=== PATIENT | male | born 1975 | race Caucasian/White ===

== ENCOUNTER 2017-11-11 12:07 | Inpatient (IN) | payer OTHER ==
[2017-11-11] MEDS ORDERED: NA CHLORIDE 0.9% 500 ML ONE (12:44)
[2017-11-11] MEDS ORDERED: ACETAMINOPHEN 500 MG TAB ONE (12:44)
--- NOTE | 2017-11-11 13:46 | RAD REPORT ---
EXAM DESCRIPTION: CT - Head Brain Wo Cont - 11/11/2017 1:27 pm CLINICAL HISTORY: dizziness Syncope COMPARISON: No comparisons TECHNIQUE: All CT scans are performed using dose optimization technique as appropriate and may inclu de automated exposure control or mA/KV adjustment according to patient size. FINDINGS: No intracranial hemorrhage, hydrocephalus or extra-axial fluid collection.No areas of brai n edema or evidence of midline shift. The paranasal sinuses and mastoids are clear. The calvarium is intact. IMPRESSION: No acute intracranial abnormality.
[2017-11-11] MEDS ORDERED: NA CHLORIDE 0.9% 1,000 ML ONE (13:59)
--- NOTE | 2017-11-11 14:03 | RAD REPORT ---
EXAM DESCRIPTION: RAD - Chest Single View - 11/11/2017 1:29 pm CLINICAL HISTORY: Pneumonia Chest pain. COMPARISON: No comparisons FINDINGS: Portable technique limits examination quality. The lungs are grossly clear. The heart is normal in size. No displaced fractures. IMPRESSION: No acute intrathoracic process suspected.
[2017-11-11 14:26] LABS: Absolute Lymphocytes (CBC) 0.2 K/uL (0.7-4.9); Absolute Monocytes 0.4 K/uL (0.1-1.3); Absolute Neutrophil 7.3 K/uL (1.8-8.0); Basophils % 0.3 % (0-1.3); Eosinophils % 4.2 % (0-4.4); Hematocrit 44.7 % (39.6-49.0); Lymphocytes % 2.8 % (15.3-44.8); MCH 27.4 pg (27.0-35.0); MCV 82.2 fL (80-100); MPV 9.5 fL (7.6-11.3); Monocytes % 4.8 % (3.3-12.3); RBC Red Blood Cell Count 5.44 M/uL (4.33-5.43)
[2017-11-11 14:35] LABS: Protime INR 1.27
[2017-11-11] MEDS ORDERED: PEN G BENZ LA 1.2MU/2ML SYRINGE IM ONE (14:46)
--- NOTE | 2017-11-11 16:14 | EDPHYS ---
Physician Documentation [facility] Name: Jesus Batres Age: 42 yrs Sex: Male : 1975 Arrival Date: 11/11/2017 Time: 12:19 Bed 8 Private MD: ED Physician Kayden Stearns HPI: 11/11 12:26 This 42 yrs old Male presents to ER via Unassigned with complaints of rn headache, blurred vision. 12:26 The patient complains of pain to the back of head. The patient describes the headache rn as aching. Onset: The symptoms/episode began/occurred this morning. Associated signs and symptoms: Pertinent positives: paresthesias, weakness, Pertinent negatives: altered mental status, vomiting, vertigo. Severity of symptoms: At its worst the pain was moderate, in the emergency department the pain has improved. The patient has not experienced similar symptoms in the past. Reports headache, blurred vision from left eye, and tingling of left hand since 0700, headache still present but vision near normal now and tingling resolved. NO chest pain. 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 . Historical: - Allergies: 12:30 No Known Allergies; jl7 - PMHx: 12:30 Hypertension; jl7 - Immunization history:: Adult Immunizations not up to date. - Social history:: Smoking status: Patient/guardian denies using tobacco. - Family history:: not pertinent. - Ebola Screening: : No symptoms or risks identified at this time. - Hospitalizations: : No recent hospitalization is reported. 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 Head/Face: Normocephalic, atraumatic. Eyes: Pupils equal round and reactive to light, extra-ocular motions intact. Lids and lashes normal. Conjunctiva and sclera are non-icteric and not injected. Cornea within normal limits. Periorbital areas with no swelling, redness, or edema. ENT: dry MM, mild pharyngeal erythema, no exudate or stridor. Neck: Trachea midline, no thyromegaly or masses palpated, and no cervical lymphadenopathy. Supple, full range of motion without nuchal rigidity, or vertebral point tenderness. No Meningismus. Cardiovascular: Regular rate and rhythm with a normal S1 and S2. No gallops, murmurs, or rubs. Normal PMI, no JVD. No pulse deficits. Respiratory: Lungs have equal breath sounds bilaterally, clear to auscultation and percussion. No rales, rhonchi or wheezes noted. No increased work of breathing, no retractions or nasal flaring. Abdomen/GI: Soft, non-tender, with normal bowel sounds. No distension or tympany. No guarding or rebound. No evidence of tenderness throughout. Skin: Warm, + non-blanching erythematous papular rash to bilateral lower ext, no fluctuance MS/ Extremity: Pulses equal, no cyanosis. Neurovascular intact. Full, normal range of motion. Equal circumference. Neuro: Awake and alert, GCS 15, oriented to person, place, time, and situation. Cranial nerves II-XII grossly intact. Motor strength 5/5 in all extremities. Sensory grossly intact. Cerebellar exam normal. Normal gait. Vital Signs: 12:30 BP 116 / 62; Pulse 110; Resp 18 S; Temp 102.3(O); Pulse Ox 96% on R/A; Weight 122.47 kg jl7 (R); Height 5 ft. 9 in. (175.26 cm) (R); Pain 7/10; 13:45 BP 89 / 49; Pulse 107; Resp 16 S; Temp 99.6(O); Pulse Ox 98% on R/A; jl7 14:13 BP 82 / 58; Pulse 101; Resp 16; Pulse Ox 98% on R/A; dh3 15:17 BP 108 / 57; Pulse 96; Resp 18 S; Pulse Ox 98% on R/A; 7 16:04 BP 97 / 64; Pulse 95; Resp 15 S; Pulse Ox 99% on R/A; jl7 12:30 Body Mass Index 39.87 (122.47 kg, 175.26 cm) 7 Justine Coma Score: 16:11 Eye Response: spontaneous(4). Verbal Response: oriented(5). Motor Response: obeys rn commands(6). Total: 15. MDM: 12:23 Patient medically screened. rn 16:11 Differential diagnosis: intracerebral hemorrhage, migraine, vasomotor headache, strep, rn flu, viral syndrome, cellulitis. Data reviewed: vital signs, nurses notes, lab test result(s), radiologic studies, CT scan, plain films, and as a result, I will admit patient. Counseling: I had a detailed discussion with the patient and/or guardian regarding: the historical points, exam findings, and any diagnostic results supporting the discharge/admit diagnosis, lab results, radiology results, the need for further work-up and treatment in the hospital. Response to treatment: the patient's symptoms have markedly improved after treatment, and as a result, I will admit patient. Admission orders: after a detailed discussion of the patient's condition and case, the admit orders are written by me. ED course: Pt admitted for elevated procalcitonin and hypotension requiring aggressive fluid resuscitation. . 11/11 12:25 Order name: Magnesium rn 11/11 12:25 Order name: Basic Metabolic Panel rn 11/11 12:25 Order name: CBC with Diff 11/11 12:25 Order name: Protime (+inr) rn 11/11 12:25 Order name: Ptt, Activated rn 11/11 12:25 Order name: Troponin (emerg Dept Use Only) rn 11/11 12:25 Order name: Procalcitonin rn 11/11 12:25 Order name: Blood Culture Adult (2) rn 11/11 12:25 Order name: [place] Screen Profile rn 11/11 12:25 Order name: Flu rn 11/11 12:44 Order name: Strep rn 11/11 14:28 Order name: CBC with Automated Diff EDWY 11/11 14:28 Order name: Group A Streptococcus Rapid Sc; Complete Time: 14:33 EDMS 11/11 14:30 Order name: Influenza Screen (A ; Complete Time: 14:33 EDMS 11/11 12:25 Order name: CT Head Brain wo Cont rn 11/11 12:25 Order name: EKG; Complete Time: 17:39 rn 11/11 12:25 Order name: Cardiac monitoring; Complete Time: 14:09 rn 11/11 12:25 Order name: XRAY Chest (1 view) rn 11/11 13:47 Order name: CT; Complete Time: 14:23 EDWY 11/11 14:14 Order name: RAD; Complete Time: 14:23 EDWY 11/11 14:38 Order name: [place] Screen; Complete Time: 15:08 EDMS 11/11 14:46 Order name: Protime (+INR); Complete Time: 15:08 EDWY 11/11 14:46 Order name: PTT, Activated Partial Thromb; Complete Time: 15:08 EDWY 11/11 15:00 Order name: Magnesium; Complete Time: 15:08 EDWY 11/11 15:15 Order name: Procalcitonin; Complete Time: 15:44 EDWY 11/11 16:43 Order name: Diet Heart Healthy; Complete Time: 17:44 aa5 11/11 12:25 Order name: EKG - Nurse/Tech; Complete Time: 14:09 rn 11/11 12:25 Order name: IV Saline Lock; Complete Time: 14:09 rn 11/11 12:25 Order name: Labs collected and sent; Complete Time: 14: rn 11/11 12:25 Order name: NPO; Complete Time: 14:09 rn 11/11 12:25 Order name: O2 Per Protocol; Complete Time: 14:09 rn 11/11 12:25 Order name: O2 Sat Monitoring; Complete Time: 14: rn 11/11 12:25 Order name: Glucose Level; Complete Time: 14:09 rn Administered Medications: 12:45 Drug: Tylenol 1000 mg Route: PO; jl7 14:09 Follow up: Response: No adverse reaction; Temperature is decreased jl7 12:50 Drug: NS 0.9% 1000 ml Route: IV; Rate: 1 bolus; Site: right antecubital; jl7 14:30 Follow up: IV Status: Completed infusion jl7 13:40 Drug: NS 0.9% 500 ml Route: IV; Rate: bolus; Site: right antecubital; jl7 15:00 Follow up: IV Status: Completed infusion jl7 14:48 Drug: Bicillin L-A 1.2 million units Route: IM; Site: right gluteus; jl7 15:17 Follow up: Response: No adverse reaction jl7 Disposition: 11/11/17 16:12 Hospitalization ordered by Salazar Doty for Inpatient Admission. Preliminary diagnosis are Hypotension, Streptococcal sepsis, Cellulitis of left lower limb, Cellulitis of right lower limb. - Bed requested for Telemetry/MedSurg (Inpatient). - Status is Inpatient Admission. iw - Condition is Stable. - Problem is new. - Symptoms have improved. UTI on Admission? No Critical care time excluding procedures: 16:11 Critical care time: Bedside Care: 25 minutes, Consultation: 5 minutes. Total time: 30 rn minutes Signatures: Dispatcher [employer] EDMS Vernell Pro Irene, Kayden Wolf RN, MD MD rn Leal, Jahala, RN RN jl7 Corrections: (The following items were deleted from the chart) 14:00 12:26 Constitutional: This is a well developed, well nourished patient who is awake, rn alert, and in no acute distress. Head/Face: Normocephalic, atraumatic. Eyes: Pupils equal round and reactive to light, extra-ocular motions intact. Lids and lashes normal. Conjunctiva and sclera are non-icteric and not injected. Cornea within normal limits. Periorbital areas with no swelling, redness, or edema. ENT: dry MM Neck: Trachea midline, no thyromegaly or masses palpated, and no cervical lymphadenopathy. Supple, full range of motion without nuchal rigidity, or vertebral point tenderness. No Meningismus. Cardiovascular: Regular rate and rhythm with a normal S1 and S2. No gallops, murmurs, or rubs. Normal PMI, no JVD. No pulse deficits. Respiratory: Lungs have equal breath sounds bilaterally, clear to auscultation and percussion. No rales, rhonchi or wheezes noted. No increased work of breathing, no retractions or nasal flaring. Abdomen/GI: Soft, non-tender, with normal bowel sounds. No distension or tympany. No guarding or rebound. No evidence of tenderness throughout. MS/ Extremity: Pulses equal, no cyanosis. Neurovascular intact. Full, normal range of motion. Equal circumference. Neuro: Awake and alert, GCS 15, oriented to person, place, time, and situation. Cranial nerves II-XII grossly intact. Motor strength 5/5 in all extremities. Sensory grossly intact. Cerebellar exam normal. Normal gait. rn 17:13 16:12 Hospitalization Ordered by Salazar Doty DO for Inpatient Admission. Preliminary bd diagnosis is Hypotension; Streptococcal sepsis; Cellulitis of left lower limb; Cellulitis of right lower limb. Bed requested for Telemetry/MedSurg (Inpatient). Status is Inpatient Admission. Condition is Stable. Problem is new. Symptoms have improved. UTI on Admission? No. rn 17:37 17:13 11/11/2017 16:12 Hospitalization Ordered by Salazar Doty DO for Inpatient iw Admission. Preliminary diagnosis is Hypotension; Streptococcal sepsis; Cellulitis of left lower limb; Cellulitis of right lower limb. Bed requested for Telemetry/MedSurg (Inpatient). Status is Inpatient Admission. Condition is Stable. Problem is new. Symptoms have improved. UTI on Admission? No. bd
--- NOTE | 2017-11-11 16:14 | ER ---
Nurse's Notes [facility] Name: Jesus Batres Age: 42 yrs Sex: Male : 1975 Arrival Date: 11/11/2017 Time: 12:19 Bed 8 Private MD: Diagnosis: Hypotension;Streptococcal sepsis;Cellulitis of left lower limb;Cellulitis of right lower limb Presentation: 11/11 12:27 Presenting complaint: EMS states: He's having blurred vision in left eye. tingling in jl7 left fingers, KUMAR, chills, cellulitis of the left lower extremity. Transition of care: patient was not received from another setting of care. Onset of symptoms was November 11, 2017 at 07:00. Risk Assessment: Do you want to hurt yourself or someone else? Patient reports no desire to harm self or others. Initial Sepsis Screen: Does the patient meet any 2 criteria? No. Patient's initial sepsis screen is negative. Does the patient have a suspected source of infection? No. Patient's initial sepsis screen is negative. Care prior to arrival: None. 12:27 Method Of Arrival: EMS: [facility] 12:27 Acuity: ISH 3 jl7 Triage Assessment: 12:30 General: Appears in no apparent distress. uncomfortable, Behavior is calm, cooperative. jl7 Pain: Complains of pain in headache Pain does not radiate. Pain currently is 7 out of 10 on a pain scale. EENT: Reports blurred vision in left eye. Neuro: Level of Consciousness is awake, alert, obeys commands, Oriented to person, place, time, situation, Trauma Therapist are equal bilaterally Moves all extremities. Speech is normal, Facial symmetry appears normal. Cardiovascular: Patient's skin is warm and dry. Respiratory: Airway is patent Respiratory effort is even, unlabored, Respiratory pattern is regular, symmetrical. GI: No signs and/or symptoms were reported involving the gastrointestinal system. : No signs and/or symptoms were reported regarding the genitourinary system. Derm: No signs and/or symptoms reported regarding the dermatologic system. Musculoskeletal: No signs and/or symptoms reported regarding the musculoskeletal system. Historical: - Allergies: 12:30 No Known Allergies; jl7 - PMHx: 12:30 Hypertension; jl7 - Immunization history:: Adult Immunizations not up to date. - Social history:: Smoking status: Patient/guardian denies using tobacco. - Family history:: not pertinent. - Ebola Screening: : No symptoms or risks identified at this time. - Hospitalizations: : No recent hospitalization is reported. Screenin:10 Abuse screen: Denies threats or abuse. Denies injuries from another. Nutritional jl7 screening: No deficits noted. Tuberculosis screening: No symptoms or risk factors identified. Fall Risk IV access (20 points). Total Fung Fall Scale indicates No Risk (0-24 pts). Assessment: 13:45 Reassessment: ERD notified of blood pressure, one liter NS bolus ordered at this time. jl7 14:45 Reassessment: Patient and/or family updated on plan of care and expected duration. Pain jl7 level reassessed. Patient is alert, oriented x 3, equal unlabored respirations, skin warm/dry/pink. 15:40 Reassessment: Pt's IV infiltrated, IV removed at this time. jl7 15:43 Reassessment: Patient and/or family updated on plan of care and expected duration. Pain jl7 level reassessed. Patient is alert, oriented x 3, equal unlabored respirations, skin warm/dry/pink. 16:04 Reassessment: Dr. Stearns at bedside discussing plan of care. Pt unable to void at this jl7 time. Bladder scan completed, shows 63 mLs. Vital Signs: 12:30 BP 116 / 62; Pulse 110; Resp 18 S; Temp 102.3(O); Pulse Ox 96% on R/A; Weight 122.47 kg jl7 (R); Height 5 ft. 9 in. (175.26 cm) (R); Pain 7/10; 13:45 BP 89 / 49; Pulse 107; Resp 16 S; Temp 99.6(O); Pulse Ox 98% on R/A; jl7 14:13 BP 82 / 58; Pulse 101; Resp 16; Pulse Ox 98% on R/A; dh3 15:17 BP 108 / 57; Pulse 96; Resp 18 S; Pulse Ox 98% on R/A; jl7 16:04 BP 97 / 64; Pulse 95; Resp 15 S; Pulse Ox 99% on R/A; jl7 12:30 Body Mass Index 39.87 (122.47 kg, 175.26 cm) jl7 Justine Coma Score: 16:11 Eye Response: spontaneous(4). Verbal Response: oriented(5). Motor Response: obeys rn commands(6). Total: 15. ED Course: 12:19 Patient arrived in ED. bd 12:22 Arpit Pacheco, RN is Primary Nurse. jl7 12:23 Kayden Stearns MD is Attending Physician. rn 12:28 Triage completed. jl7 12:30 Arm band placed on right wrist. jl7 13:10 Patient has correct armband on for positive identification. Placed in gown. Bed in low jl7 position. Call light in reach. Side rails up X 1. Pulse ox on. NIBP on. 13:20 First set of blood cultures drawn by me. jl7 13:28 X-ray completed. Portable x-ray completed in exam room. Patient tolerated procedure la2 well. 13:40 Initial lab(s) drawn, by me, sent to lab. Inserted saline lock: 20 gauge in right jl7 antecubital area, using aseptic technique. Blood collected. 13:40 Second set of blood cultures drawn by me. jl7 14:21 Notified ED physician of a critical lab result(s). strep positive. dm5 15:40 Missed attempt(s): 22 gauge in left forearm. Bleeding controlled, band aid applied, jl7 catheter tip intact. 15:42 Missed attempt(s): 22 gauge in left antecubital area. jl7 15:50 Inserted saline lock: 22 gauge in right wrist, using aseptic technique. aa5 16:12 Salazar Doty DO is Hospitalizing Provider. rn 17:22 No provider procedures requiring assistance completed. Patient admitted, IV remains in jl7 place. intact, No redness/swelling at site. 17:25 lactate deborah by me by venipuncture 23G to right ac and sent to lab. dh3 Administered Medications: 12:45 Drug: Tylenol 1000 mg Route: PO; jl7 14:09 Follow up: Response: No adverse reaction; Temperature is decreased jl7 12:50 Drug: NS 0.9% 1000 ml Route: IV; Rate: 1 bolus; Site: right antecubital; jl7 14:30 Follow up: IV Status: Completed infusion jl7 13:40 Drug: NS 0.9% 500 ml Route: IV; Rate: bolus; Site: right antecubital; jl7 15:00 Follow up: IV Status: Completed infusion jl7 14:48 Drug: Bicillin L-A 1.2 million units Route: IM; Site: right gluteus; jl7 15:17 Follow up: Response: No adverse reaction jl7 Outcome: 16:12 Decision to Hospitalize by Provider. rn 17:22 Admitted to Tele accompanied by tech, via wheelchair, room 210, with chart, Report jl7 called to VAL Maya 17:22 Condition: stable 17:22 Discharge instructions given to patient, family, Instructed on the need for admit, Demonstrated understanding of instructions. 17:37 Patient left the ED. iw Signatures: Vernell Pro Deana RN RN [id number] Melisa Braxton RN RN iw Kayden Stearns MD MD rn Calderon, Audri RN RN [email or web address] Arpit Pacheco RN RN [email or web address] Violet Wheeler 3 Melissa Victor2 Corrections: (The following items were deleted from the chart) 17:10 13:45 Inserted saline lock: 20 gauge in right antecubital area, using aseptic jlNacho technique. Blood collected. [facility] 17:10 13:45 Initial lab(s) drawn, by ks, sent to lab. [facility] jl
[2017-11-11] MEDS ORDERED: ONDANSETRON 4 MG/2 ML VIAL IV PRN (16:39)
--- NOTE | 2017-11-11 16:54 | P.HP ---
Certification for Inpatient Patient admitted to: Inpatient With expected LOS: >2 Midnights Patient will require the following post-hospital care: None Practitioner: I am a practitioner with admitting privileges, knowledge of patient current condition, hospital course, and medical plan of care. Services: Services provided to patient in accordance with Admission requirements found in Title 42 Section 412.3 of the Code of Federal Regulations Patient History Date of Service: 11/11/17 Primary Care Provider: Terrie Ruiz NP Reason for admission: Blurry vision, fever, presyncope History of Present Illness: 42-year-old male presented to emergency room with symptoms of fever, blurry vision, and presyncope. Patient reports that last week he had a lower extremity cellulitis. He was given antibiotics by his primary care physician. He was also started on blood pressure medication at that time for elevated blood pressure. Symptoms did not improve. He was to start more medication. This morning when he went to work he noted some blurry vision to the left eye. He felt lightheaded. At work his blood pressure was checked. It was low. Patient was sent to the ER for further evaluation. In the ER patient evaluated. Initial blood pressures were in the 60s systolic. Patient was febrile in the emergency room. Patient was given IV fluid bolus. CT head unremarkable. Chest x-ray unremarkable. White count 8.3. Hemoglobin 14.9. Platelet count 144. Pro calcitonin elevated at 6.83. Influenza test negative. He had a positive strep test. Patient was given Bicillin in the emergency room. After fluid hydration patient blood pressure improved. He was less orthostatic. He was admitted for further evaluation. When I saw the patient the ER, blood pressure was improved. Blood pressure 108/ 67. Patient denied any chest pain, shortness of breath, nausea or vomiting. He denied any cough, congestion or sore throat. Patient felt less tired. Patient reports that he has had poor oral intake. Patient with history of Asencio Parkinson White with ablation in 2007. Patient recently started blood pressure medication for elevated blood pressure. He does not recall the medication. Patient denies any sick individuals. Otherwise patient stable this time. 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 He has 1 child. 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 - Family History Father -: Cancer (Throat cancer. Father with history of tobacco use) - Social History Smoking Status: Never smoker Alcohol use: No CD- Drugs: No Caffeine use: Yes Place of Residence: Home Review of Systems General: Fever, Weakness, Malaise, As per HPI Eyes: Vision Change, As per HPI ENT: Unremarkable Respiratory: Unremarkable Cardiovascular: Light Headedness, As per HPI Gastrointestinal: Unremarkable Genitourinary: Unremarkable Musculoskeletal: Unremarkable Integumentary: As per HPI Neurological: Weakness, As per HPI Lymphatics: Unremarkable Physical Examination - Physical Exam General: Alert, In no apparent distress, Oriented x3, Cooperative HEENT: Atraumatic, Normocephalic, PERRLA, Other (Dry mucous membranes), EOMI Neck: Supple, Other (Patient with large neck girth.) Respiratory: Clear to auscultation bilaterally, Normal air movement Cardiovascular: Normal pulses, Regular rate/rhythm Gastrointestinal: Normal bowel sounds, Soft and benign, Non-distended, No tenderness, No masses, No rebound, No guarding, Other (Morbid obesity.) Musculoskeletal: Other (Mild erythema to the left lower extremity between the knee and ankle. Mild warmth noted. No significant edema noted.) Integumentary: Other (Petechial rash noted to the right lower extremity.) Neurological: Normal speech, Normal strength at 5/5 x4 extr, Normal tone, Normal affect, Other - Studies Laboratory Data (last 24 hrs) 11/11/17 13:20: Magnesium 2.0 11/11/17 13:20: PT 15.0 H, INR 1.27, APTT 29.3 11/11/17 13:20: WBC 8.3, Hgb 14.9, Hct 44.7, Plt Count 144 L Microbiology Data (last 24 hrs): 11/11/17 13:20 Nasopharnyx Influenza Type A Antigen Screen - Final 11/11/17 13:20 Nasopharnyx Influenza Type B Antigen Screen - Final 11/11/17 13:20 Throat Group A Streptococcus Rapid Screen - Final Assessment and Plan Discharge Plan: Home Plan to discharge in: Greater than 2 days - Advance Directives Does patient have a Living Will: No Does patient have a Durable POA for Healthcare: No - Code Status/Comfort Care Code Status Assessed: Yes (Patient full code.) Physician Review Additional Text: Impression: Presyncope, hypotension likely multifactorial. Suspect sepsis related to LLE cellulitis complicated with recent use of hypertensive medication and dehydration Left lower extremity cellulitis Positive strep test likely colonization Blurry vision Morbid obesity Patient likely with obstructive sleep apnea History of WPW status post ablation 2007 Plan: Presyncope, hypotension likely multifactorial. Suspect sepsis related to LLE cellulitis complicated with recent use of hypertensive medication and dehydration: Patient will be admitted. Will start broad-spectrum and antibiotics-Levaquin and vancomycin for left lower extremity cellulitis. Possible sepsis noted. Will hold his blood pressure medication. Will continue with IV fluid boluses up to 3 L then maintenance. Will monitor lactic acid. Will keep the patient bed-bound today. Will repeat assess blood pressure tomorrow. Will check orthostatics. Blood, urine cultures will be obtained. Recheck chest x-ray. Will obtain echocardiogram and carotid Doppler. Left lower extremity cellulitis: Patient be started on broad-spectrum antibiotics-Levaquin and vancomycin. Pharmacy to monitor and adjust. Await blood, urine culture. Positive strep test likely colonization: Patient denies any cough, congestion or sore throat. This is likely colonization. Blurry vision: Likely from presyncope and hypotension. Will check echocardiogram and carotid Doppler. CT head unremarkable. Morbid obesity: Will address lifestyle modification education. Patient likely with obstructive sleep apnea: Patient will need to be evaluated as an outpatient with pulmonology for sleep study. History of WPW status post ablation 2007: Will monitor the patient on telemetry. Time Spent Managing Pts Care (In Minutes): 55
[2017-11-11 17:40] LABS: BUN Blood Urea Nitrogen 26 mg/dL (7-18); Bicarbonate 24 mmol/L (21-32); Glucose Level 112 mg/dL (74-106); Potassium 3.8 mmol/L (3.5-5.1); Sodium Level 126 mmol/L (136-145); Troponin (Emerg Dept Use Only) < 0.02 ng/mL (0.0-0.045)
[2017-11-11] MEDS: NA CHLORIDE 0.9% 1,000 ML IV SCH (18:00)
[2017-11-11] MEDS ORDERED: VANCOMYCIN 3 GM in NA CHLORIDE 0.9% 500 ML IVPB ONE (18:00)
[2017-11-11] MEDS ORDERED: ENOXAPARIN 40 MG/0.4 ML SQ SCH (18:00)
[2017-11-11] MEDS: Levofloxacin500mg IV 500 MG/100 ML BAG IV SCH (18:51)
[2017-11-11 19:10] LABS: Blood Morphology Comment NOT SEEN (NOT SEEN); Platelet Estimate DECR
[2017-11-11 19:32] LABS: Urine Appearance CLOUDY; Urine Bilirubin NEGATIVE (NEG); Urine Blood TRACE (NEG); Urine Color YELLOW; Urine Glucose NEGATIVE (NEG); Urine Protein TRACE (NEG); Urine Urobilinogen 0.2 mg/dL (0.2-1.0)
[2017-11-11] MEDS ORDERED: NA CHLORIDE 0.9% 1,000 ML IV ONE (20:00)
[2017-11-11 20:04] LABS: Calcium Oxalate Crystals- Ur FEW (NONE SEEN); Urine Bacteria <20 /HPF (NONE SEEN); Urine Culture Reflex Order NOT NEEDED; Urine RBC <5 /HPF (NONE SEEN)
[2017-11-11] MEDS: MUPIROCIN 2% OINT 22GM TUBE TOP SCH (21:00)
[2017-11-12] MEDS: ACETAMINOPHEN 500 MG TAB PO PRN ×2 (00:54→09:16)
[2017-11-12] MEDS: NA CHLORIDE 0.9% 1,000 ML IV SCH ×4 (00:57→23:42)
[2017-11-12 05:05] LABS: Absolute Lymphocytes (CBC) 0.5 K/uL (0.7-4.9); Absolute Monocytes 0.5 K/uL (0.1-1.3); Basophils % 0.2 % (0-1.3); Eosinophils % 10.1 % (0-4.4); Hematocrit 40.8 % (39.6-49.0); Lymphocytes % 11.3 % (15.3-44.8); MCH 27.6 pg (27.0-35.0); MCV 82.8 fL (80-100); MPV 9.5 fL (7.6-11.3); Monocytes % 10.7 % (3.3-12.3); RBC Red Blood Cell Count 4.92 M/uL (4.33-5.43)
[2017-11-12 05:43] LABS: Potassium 4.1 mmol/L (3.5-5.1); Thyroid Stimulating Hormone 1.18 uIU/mL (0.360-3.740)
[2017-11-12] MEDS ORDERED: VANCOMYCIN 2 GM in NA CHLORIDE 0.9% 500 ML IVPB SCH (06:00)
--- NOTE | 2017-11-12 08:31 | RAD REPORT ---
EXAM DESCRIPTION: RAD - Chest Pa And Lat (2 Views) - 11/12/2017 7:04 am CLINICAL HISTORY: Follow up hypotension, sepsis. Positive strept Chest pain. COMPARISON: Chest Single View dated 11/11/2017; CHEST SINGLE VIEW dated 04/05/2009 FINDINGS: The lungs are clear. The heart is upper limit normal size. No displaced fractures. IMPRESSION: Stable chest since comparative study.
--- NOTE | 2017-11-12 08:38 | RAD REPORT ---
EXAM DESCRIPTION: US - Renal Ultrasound-Complete - 11/12/2017 8:14 am CLINICAL HISTORY: acute renal failure, sepsis Flank pain COMPARISON: No comparisons FINDINGS: Both kidneys are normal in size, shape and echotexture. The right kidney measures 12.6 x 5.6 x 5.3 cm. Slightly complex cyst is present upper pole right kidn ey measuring 5.0 x 5.0 cm containing a slightly thickened septum. Small hypoechoic 1.3 cm cyst is pre sent as well inferior pole. No hydronephrosis. The left kidney measures 11.1 x 6.5 x 6.1 cm. No hydronephrosis, focal mass or perinephric fluid. The urinary bladder is incompletely distended without gross abnormality seen. IMPRESSION: Slightly complicated upper pole right renal cyst with a slightly thickened internal sept um. The cyst measures 5.0 cm. Followup surveillance imaging would be recommended of this lesion with MR imaging of the kidneys with contrast in 3-6 months. Otherwise, negative renal sonography.
[2017-11-12] MEDS ORDERED: FLUTICASONE 50MCG NASAL SPRAY NAS SCH (09:00)
[2017-11-12] MEDS: MUPIROCIN 2% OINT 22GM TUBE TOP SCH ×2 (09:00→21:00)
[2017-11-12] MEDS ORDERED: VANCOMYCIN 1 GM in NA CHLORIDE 0.9% 500 ML IVPB SCH (09:00)
--- NOTE | 2017-11-12 09:06 | RAD REPORT ---
EXAM DESCRIPTION: US - CP - 11/12/2017 8:33 am CLINICAL HISTORY: Syncope Visual disturbances. COMPARISON: No comparisons TECHNIQUE: Real-time sonographic evaluation of both carotid systems was performed. Doppler interroga tion was performed with waveform tracing bilaterally. FINDINGS: Normal high resistance waveforms are noted in both external carotid arteries. The common c arotid arteries and internal carotid arteries show normal low resistance waveforms. No significant plaque formation is seen. Mild intimal thickening is present bilaterally. Peak systoli c and end diastolic velocity values and the ICA/CCA ratios are in the non-hemodynamically significant range. Antegrade flow seen in both vertebral arteries. IMPRESSION: No significant atherosclerotic changes noted. No evidence of a hemodynamically significant stenosis.
[2017-11-12] MEDS: PANTOPRAZOLE 40MG TABLET PO SCH (09:13)
[2017-11-12] MEDS: ASPIRIN EC 81 MG TAB PO SCH (09:13)
[2017-11-12 09:29] LABS: Platelet Estimate DECR
--- NOTE | 2017-11-12 10:26 | P.PN ---
Subjective Date of Service: 11/12/17 Primary Care Provider: Terrie Ruiz NP Chief Complaint: Blurry vision, fever, presyncope Subjective: Improving Physical Examination - Vital Signs Temperature: 99.2 F Blood Pressure: 124/67 Pulse: 94 Respirations: 18 Pulse Ox (%): 94 - Physical Exam General: Alert, In no apparent distress, Oriented x3, Cooperative HEENT: Atraumatic Neck: Supple Respiratory: Clear to auscultation bilaterally, Normal air movement Cardiovascular: Normal pulses, Regular rate/rhythm Gastrointestinal: Normal bowel sounds, Soft and benign, Non-distended, No tenderness, No masses, No rebound, No guarding Musculoskeletal: No contractures Integumentary: Other (Erythema to the left lower extremity improved.) Neurological: Normal speech, Normal strength at 5/5 x4 extr, Normal tone, Normal affect - Studies Laboratory Data (last 24 hrs) 11/11/17 13:20: Magnesium 2.0 11/11/17 13:20: Sodium 126 L, Potassium 3.8, BUN 26 H, Creatinine 3.40 H, Glucose 112 H 11/11/17 13:20: PT 15.0 H, INR 1.27, APTT 29.3 11/11/17 13:20: WBC 8.3, Hgb 14.9, Hct 44.7, Plt Count 144 L 11/11/17 12:25: PT Cancelled, INR Cancelled, APTT Cancelled 11/11/17 12:25: WBC Cancelled, Hgb Cancelled, Hct Cancelled, Plt Count Cancelled 11/11/17 12:25: Sodium Cancelled, Potassium Cancelled, BUN Cancelled, Creatinine Cancelled, Glucose Cancelled, Magnesium Cancelled Microbiology Data (last 24 hrs): 11/11/17 13:20 Nasopharnyx Influenza Type A Antigen Screen - Final 11/11/17 13:20 Nasopharnyx Influenza Type B Antigen Screen - Final 11/11/17 13:20 Throat Group A Streptococcus Rapid Screen - Final Medications List Reviewed: Yes Assessment & Plan Discharge Plan: Home Plan to discharge in: 48 Hours Physician Review Additional Text: Impression: Presyncope, hypotension likely multifactorial. Suspect sepsis related to LLE cellulitis complicated with recent use of hypertensive medication and dehydration Left lower extremity cellulitis Positive strep test likely colonization History of Hypertension with hypotension likely related to medication Acute renal failure secondary to hypertension and medication Right renal cyst, complicated-5 cm in size Blurry vision Hyponatremia likely from sepsis and hypotension Thrombocytopenia likely from sepsis Morbid obesity Patient likely with obstructive sleep apnea History of WPW status post ablation 2007 Plan: Presyncope, hypotension likely multifactorial. Suspect sepsis related to LLE cellulitis complicated with recent use of hypertensive medication and dehydration: Patient improved. Blood pressure stable. Continue with IV fluids. Continue with broad-spectrum antibiotics-Levaquin and vancomycin for left lower extremity cellulitis. Await blood and urine culture results. Repeat chest x-ray negative for pneumonia. Carotid Doppler unremarkable. Await echocardiogram. Continue to hold blood pressure medication. Left lower extremity cellulitis: This has improved. Will continue with broad- spectrum antibiotics-Levaquin and vancomycin. Pharmacy to monitor and adjust. Await blood, urine culture. Positive strep test likely colonization: Patient denies any cough, congestion or sore throat. Chest x-ray unremarkable including repeat. This is likely colonization. Blurry vision: Likely from presyncope and hypotension. Carotid Doppler unremarkable. Await echocardiogram. Continue to hold blood pressure medication. Hypertension: Patient recently started on hypertensive medication. Medication has been discontinued due to hypotension. Acute renal failure secondary to hypotension and medication: Continue IV fluids. Renal ultrasound shows slightly complicated upper right renal cyst. Nephrology consulted to further evaluate. Right renal cyst, 5 cm in size: Slightly complicated upper right renal cyst with thickened internal septum: Patient will need MRI with contrast within 3 months to reassess. Nephrology consulted to further monitor. Hyponatremia likely secondary to sepsis and hypotension: Continue IV fluids. Thrombocytopenia likely from sepsis: Continue to monitor closely. Hold DVT prophylaxis. Patient likely with obstructive sleep apnea: Patient will need to be evaluated as an outpatient with pulmonology for sleep study. History of WPW status post ablation 2007: Will monitor the patient on telemetry.Morbid obesity: Will continue to address lifestyle modification education. Time Spent Managing Pts Care (In Minutes): 55
--- NOTE | 2017-11-12 16:37 | P.CNS ---
Date of Consult: 11/12/17 Reason for Consult: NAKUL Requesting Physician: Salazar Doty Primary Care Provider: Terrie Ruiz NP Chief Complaint: Blurry vision, fever, presyncope History of Present Illness: 42-year-old male presented to emergency room with symptoms of fever, blurry vision, and presyncope. Patient reports that last week he had a lower extremity cellulitis. He was given antibiotics by his primary care physician. He was also started on blood pressure medication at that time for elevated blood pressure. Symptoms did not improve. He was to start more medication. This morning when he went to work he noted some blurry vision to the left eye. He felt lightheaded. At work his blood pressure was checked. It was low. Patient was sent to the ER for further evaluation. In the ER patient evaluated. Initial blood pressures were in the 60s systolic. Patient was febrile in the emergency room. Patient was given IV fluid bolus. CT head unremarkable. Chest x-ray unremarkable. White count 8.3. Hemoglobin 14.9. Platelet count 144. Pro calcitonin elevated at 6.83. Influenza test negative. He had a positive strep test. Patient was given Bicillin in the emergency room. After fluid hydration patient blood pressure improved. He was less orthostatic. He was admitted for further evaluation. 12:26 This 42 yrs old Male presents to ER via Unassigned with complaints of rn headache, blurred vision. 12:26 The patient complains of pain to the back of head. The patient describes the headache rn as aching. Onset: The symptoms/episode began/occurred this morning. Associated signs and symptoms: Pertinent positives: paresthesias, weakness, Pertinent negatives: altered mental status, vomiting, vertigo. Severity of symptoms: At its worst the pain was moderate, in the emergency department the pain has improved. The patient has not experienced similar symptoms in the past. Reports headache, blurred vision from left eye, and tingling of left hand since 0700, headache still present but vision near normal now and tingling resolved. NO chest pain. 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 Allergies No Known Allergies Allergy (Verified 11/11/17 17:51) Home medications list reviewed: Yes Home Medications: Cetirizine HCl 1 tab PO DAILY 11/12/17 D-Chlorphenira/Pse/Chlophedian [Vanacof Liquid] 1 tsp PO Q8H 11/12/17 Fluticasone [Flonase 50MCG Nasal Tonica*] 1 spray NS DAILY 11/12/17 Ketoconazole [Nizoral] 1 tab PO DAILY 11/12/17 Mupirocin 1 mague TOP BID 11/12/17 Nystatin Cream [Mycostatin 100MU/Gm Cream*] 1 mague TOP SEECOM 11/12/17 Smz./Tmp. 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 He has 1 child. 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 - Family History Father Medical History: Cancer (Throat cancer. Father with history of tobacco use) - Social History Alcohol use: No CD- Drugs: No Caffeine use: Yes Place of Residence: Home Review of Systems 10-point ROS is otherwise unremarkable General: Weakness, Malaise Respiratory: Cough Integumentary: Rash, Lesions Physical Examination Temp Pulse Resp BP Pulse Ox 98.5 F 94 H 18 123/73 97 11/12/17 15:00 11/12/17 15:00 11/12/17 15:00 11/12/17 15:00 11/12/17 15:00 General: In no apparent distress, Oriented x3, Cooperative HEENT: Atraumatic Neck: Supple Respiratory: Clear to auscultation bilaterally, Normal air movement Cardiovascular: No edema, Regular rate/rhythm Gastrointestinal: Soft and benign, Non-distended Musculoskeletal: No clubbing, No contractures, No warmth Integumentary: No cyanosis, Rash(es), Skin breakdown, Skin lesion Neurological: Normal speech Laboratory Data (last 24 hrs) 11/11/17 13:20: Sodium 126 L, Potassium 3.8, BUN 26 H, Creatinine 3.40 H, Glucose 112 H 11/11/17 13:20: WBC 8.3, Hgb 14.9, Hct 44.7, Plt Count 144 L 11/11/17 12:25: PT Cancelled, INR Cancelled, APTT Cancelled 11/11/17 12:25: WBC Cancelled, Hgb Cancelled, Hct Cancelled, Plt Count Cancelled 11/11/17 12:25: Sodium Cancelled, Potassium Cancelled, BUN Cancelled, Creatinine Cancelled, Glucose Cancelled, Magnesium Cancelled Imagings Data: EXAM DESCRIPTION: US - Renal Ultrasound-Complete - 11/12/2017 8:14 am CLINICAL HISTORY: acute renal failure, sepsis Flank pain COMPARISON: No comparisons FINDINGS: Both kidneys are normal in size, shape and echotexture. The right kidney measures 12.6 x 5.6 x 5.3 cm. Slightly complex cyst is present upper pole right kidney measuring 5.0 x 5.0 cm containing a slightly thickened septum. Small hypoechoic 1.3 cm cyst is present as well inferior pole. No hydronephrosis. The left kidney measures 11.1 x 6.5 x 6.1 cm. No hydronephrosis, focal mass or perinephric fluid. The urinary bladder is incompletely distended without gross abnormality seen. IMPRESSION: Slightly complicated upper pole right renal cyst with a slightly thickened internal septum. The cyst measures 5.0 cm. Followup surveillance imaging would be recommended of this lesion with MR imaging of the kidneys with contrast in 3-6 months. Otherwise, negative renal sonography. Conclusions/Impression: A/ NAKUL in the setting of sepsis/ hypotension. LLE Cellulitis/ Sepsis. HTN complicated hypotension. JOHNNIE? Hyponatremia. Hypocalcemia. Right slightly complex renal cyst 5cm. P/ Continue current POC and Medications. Agree with IVF. Agree with Abx. Hold antihypertensives at this time. Start Vitamin D. Repeat renal imaging in 3-6 months. No NSAIDs. AM labs. Daily weight. Thank you kindly for the consultation.
[2017-11-12] MEDS: Levofloxacin500mg IV 500 MG/100 ML BAG IV SCH (18:10)
[2017-11-12] MEDS ORDERED: NA CHLORIDE 0.9% 250 ML ONE (20:38)
[2017-11-13 06:19] LABS: Magnesium 1.8 mg/dL (1.8-2.4); Phosphorus 2.3 mg/dL (2.5-4.9); Uric Acid 6.4 mg/dL (3.5-7.2)
[2017-11-13 06:35] LABS: Absolute Lymphocytes (CBC) 1.1 K/uL (0.7-4.9); Absolute Monocytes 0.8 K/uL (0.1-1.3); Basophils % 0.5 % (0-1.3); Eosinophils % 12.4 % (0-4.4); Hematocrit 36.9 % (39.6-49.0); Lymphocytes % 24.9 % (15.3-44.8); MCH 27.5 pg (27.0-35.0); MCV 82.6 fL (80-100); MPV 9.5 fL (7.6-11.3); Monocytes % 17.8 % (3.3-12.3); RBC Red Blood Cell Count 4.46 M/uL (4.33-5.43)
[2017-11-13] MEDS ORDERED: MAGNESIUM SULFATE 1 gm IVPB 1 GM/100 ML BAG IV ONE (06:44)
[2017-11-13] MEDS: NA CHLORIDE 0.9% 1,000 ML IV SCH ×3 (06:53→20:30)
--- NOTE | 2017-11-13 07:00 | EKG ---
Test Date: 2017-11-11 Test Time: 12:31:15 First Front Ventilator: MATT MEASUREMENT RESULTS: Intervals: Rate: 107 SC: 158 QRSD: 96 QT: 360 QTc: 480 [place]: P: 59 SC: 158 QRS: 78 T: 53 INTERPRETIVE STATEMENTS: Sinus tachycardia Otherwise normal ECG Compared to ECG 04/05/2009 07:07:53 Sinus rhythm no longer present Prolonged QT interval no longer present Electronically Signed On 11-13-17 06:55:32 CDT by Jaylan Keyes
--- NOTE | 2017-11-13 08:18 | ECHO ---
HEIGHT: 5 ft 9 in WEIGHT: 271 lb 11.2 oz DATE OF STUDY: 11/12/[address]: Salazar Doty DO 2-DIMENSIONAL: YES M.MODE: YES DOPPLER: YES COLOR FLOW: YES TDS: NO PORTABLE: NO DEFINITY: NO BUBBLE STUDY: NO DIAGNOSIS: HYPOTENSION CARDIAC HISTORY: CATHERIZATION: YES SURGERY: NO PROSTHETIC VALVE: NO PACEMAKER: NO MEASUREMENTS (cm) DIASTOLIC (NORMALS) SYSTOLIC (NORMALS) IVSd 1.4 (0.6-1.2) LA Diam 3.5 (1.9-4.0) LVEF 60% LVIDd 4.5 (3.5-5.7) LVIDs 3.1 (2.0-3.5) %FS 32% LVPWd 1.5 (0.6-1.2) Ao Diam 2.8 (2.0-3.7) 2 DIMENSIONAL ASSESSMENT: RIGHT ATRIUM: NORMAL LEFT ATRIUM: NORMAL RIGHT VENTRICLE: NORMAL LEFT VENTRICLE: NORMAL TRICUSPID VALVE: NORMAL MITRAL VALVE: NORMAL PULMONIC VALVE: NORMAL AORTIC VALVE: NORMAL PERICARDIAL EFFUSION: NONE AORTIC ROOT: NORMAL LEFT VENTRICULAR WALL MOTION: NORMAL DOPPLER/COLOR FLOW: MILD TRICUSPID REGURGITATION. COMMENTS: MILD TRICUSPID REGURGITATION. NORMAL LEFT VENTRICULAR SIZE AND FUNCTION. NO EFFUSION. TECHNOLOGIST: Siddharth MIRZA
[2017-11-13 08:32] LABS: Blood Morphology Comment NOT SEEN (NOT SEEN); Platelet Estimate DECR; Urine White Blood Cell Casts OK
[2017-11-13] MEDS: MUPIROCIN 2% OINT 22GM TUBE TOP SCH ×2 (09:00→20:33)
[2017-11-13] MEDS: ENOXAPARIN 30 MG/0.3 ML SQ SCH (09:00)
[2017-11-13] MEDS: PANTOPRAZOLE 40MG TABLET PO SCH (09:41)
[2017-11-13] MEDS: ASPIRIN EC 81 MG TAB PO SCH (09:41)
--- NOTE | 2017-11-13 10:59 | P.PN ---
Subjective Date of Service: 11/13/17 Primary Care Provider: Terrie Ruiz NP Chief Complaint: Blurry vision, fever, presyncope Subjective: Improving Physical Examination - Vital Signs Temperature: 98.9 F Blood Pressure: 143/68 Pulse: 92 Respirations: 20 Pulse Ox (%): 96 - Physical Exam General: Alert, In no apparent distress, Oriented x3, Cooperative HEENT: Atraumatic Neck: Supple Respiratory: Clear to auscultation bilaterally, Normal air movement Cardiovascular: Normal pulses, Regular rate/rhythm Gastrointestinal: Normal bowel sounds, Soft and benign, Non-distended, No tenderness, No masses, No rebound, No guarding Musculoskeletal: No contractures Integumentary: Other (Erythema to the left lower extremity significantly improved. No swelling noted.) Neurological: Normal speech, Normal strength at 5/5 x4 extr, Normal tone, Normal affect - Studies Medications List Reviewed: Yes Assessment & Plan Discharge Plan: Home Plan to discharge in: 24 Hours Physician Review Additional Text: Impression: Presyncope, hypotension likely multifactorial. Suspect sepsis related to LLE cellulitis complicated with recent use of hypertensive medication and dehydration Left lower extremity cellulitis Positive strep test likely colonization History of Hypertension with hypotension likely related to medication Acute renal failure secondary to hypertension and medication Right renal cyst, complicated-5 cm in size Blurry vision Hyponatremia likely from sepsis and hypotension Thrombocytopenia likely from sepsis Morbid obesity Patient likely with obstructive sleep apnea History of WPW status post ablation 2007 Plan: Presyncope, hypotension likely multifactorial. Suspect sepsis related to LLE cellulitis complicated with recent use of hypertensive medication and dehydration: Patient continues to improve. So far blood cultures negative. Blood pressure stable. Continue with IV fluids. Encourage oral intake. Will discontinue vancomycin and continue with Levaquin. Anticipate discharge tomorrow. Positive strep test likely colonization: Patient denies any cough, congestion or sore throat. Chest x-ray unremarkable including repeat. This is likely colonization. Blurry vision: Likely from presyncope and hypotension. Carotid Doppler unremarkable. Echocardiogram within normal range. Continue to hold blood pressure medication. Hypertension: Blood pressure slightly elevated. Will start low-dose Norvasc 2.5 mg daily and monitor closely. Acute renal failure secondary to hypotension and medication with noted complicated right 5 cm renal cyst: Continue IV fluids. Encourage oral intake. Nephrology consulted. Right renal cyst, 5 cm in size, Slightly complicated upper right renal cyst with thickened internal septum: Patient will need MRI with contrast within 3 months to reassess. Nephrology consulted to further monitor. Hyponatremia likely secondary to sepsis and hypotension: Continue IV fluids. Encourage oral intake. Continue to monitor closely. Thrombocytopenia likely from sepsis: Continue to monitor closely. Hold DVT prophylaxis if platelet count less than 100. Patient likely with obstructive sleep apnea: Patient will need to be evaluated as an outpatient with pulmonology for sleep study. History of WPW status post ablation 2007: Will monitor the patient on telemetry. Echocardiogram unremarkable. Morbid obesity: Will continue to address lifestyle modification education. Time Spent Managing Pts Care (In Minutes): 55
[2017-11-13] MEDS: Levofloxacin500mg IV 500 MG/100 ML BAG IV SCH (17:20)
--- NOTE | 2017-11-13 20:00 | P.PN ---
Date of Service: 11/13/17 Vital Signs Temp Pulse Resp BP Pulse Ox 97.6 F 85 18 158/97 H 94 11/13/17 16:00 11/13/17 16:00 11/13/17 16:00 11/13/17 16:00 11/13/17 16:00 Medications Acetaminophen (Tylenol -Extra Strength) 500 mg PO Q4HP PRN PRN Reason: [id number] Stop: 12/11/17 16:40 Last Admin: 11/12/17 09:16 Dose: 500 mg Amlodipine Besylate (Norvasc) 2.5 mg PO DAILY TIFFANI Stop: 12/14/17 11:00 Aspirin (Aspirin Ec) 81 mg PO DAILY TIFFANI Stop: 12/12/17 09:01 Last Admin: 11/13/17 09:41 Dose: 81 mg Enoxaparin Sodium (Lovenox 30 Mg Inj) 30 mg SQ DAILY TIFFANI Stop: 12/13/17 09:01 Last Admin: 11/13/17 09:00 Dose: Not Given Fluticasone Propionate (Flonase 50mcg Nasal [place]) sprays WILMAN DAILY ITFFANI Stop: 12/12/17 09:01 Levofloxacin/Dextrose (Levaquin 500 Mg/100 Ml Ivpb) 500 mg in 100 mls @ 100 mls /hr IV Q24H TIFFANI; Protocol Stop: 12/11/17 18:01 Last Admin: 11/13/17 17:20 Dose: 100 mls Sodium Chloride (Ns 1000 Ml Ivbag) 1,000 mls @ 100 mls/hr IV .Q10H TIFFANI Stop: 12/13/17 12:01 Last Admin: 11/13/17 11:51 Dose: Not Given Mupirocin (Bactroban 2% Ointment) 1 appl TOP BID TIFFANI Stop: 12/11/17 21:01 Last Admin: 11/13/17 09:00 Dose: Not Given Ondansetron HCl (Zofran) 4 mg IV Q6HP PRN PRN Reason: NAUSEA / VOMITING Stop: 12/11/17 16:40 Pantoprazole Sodium (Protonix Tab) 40 mg PO ACB TIFFANI Stop: 12/12/17 07:31 Last Admin: 11/13/17 09:41 Dose: 40 mg Sodium Chloride (Normal Saline Flush) 10 ml IV BID TIFFANI Stop: 12/11/17 21:01 Last Admin: 11/13/17 09:00 Dose: Not Given Microbiology Results 11/11/17 13:40 Blood - Blood Aerobic Blood Culture - Preliminary No growth in 24 hours. 11/11/17 13:40 Blood - Blood Anaerobic Blood Culture - Preliminary No growth in 24 hours. 11/11/17 13:20 Nasopharnyx Influenza Type A Antigen Screen - Final 11/11/17 13:20 Nasopharnyx Influenza Type B Antigen Screen - Final 11/11/17 13:20 Throat Group A Streptococcus Rapid Screen - Final Assessment/ Plan: Nephrology. Feeling better today. Rash about the same today. CPS stable without CP or SOB. No edema. No acute events overnight. Vitals, medications, blood work and imaging reviewed in the chart. General: In no apparent distress, Oriented x3, Cooperative HEENT: Atraumatic Neck: Supple Respiratory: Clear to auscultation bilaterally, Normal air movement Cardiovascular: No edema, Regular rate/rhythm Gastrointestinal: Soft and benign, Non-distended Musculoskeletal: No clubbing, No contractures, No warmth Integumentary: No cyanosis, Rash(es), Skin breakdown, Skin lesion Neurological: Normal speech Laboratory Data (last 24 hrs) 11/11/17 13:20: Sodium 126 L, Potassium 3.8, BUN 26 H, Creatinine 3.40 H, Glucose 112 H 11/11/17 13:20: WBC 8.3, Hgb 14.9, Hct 44.7, Plt Count 144 L 11/11/17 12:25: PT Cancelled, INR Cancelled, APTT Cancelled 11/11/17 12:25: WBC Cancelled, Hgb Cancelled, Hct Cancelled, Plt Count Cancelled 11/11/17 12:25: Sodium Cancelled, Potassium Cancelled, BUN Cancelled, Creatinine Cancelled, Glucose Cancelled, Magnesium Cancelled Imagings Data: EXAM DESCRIPTION: US - Renal Ultrasound-Complete - 11/12/2017 8:14 am CLINICAL HISTORY: acute renal failure, sepsis Flank pain COMPARISON: No comparisons FINDINGS: Both kidneys are normal in size, shape and echotexture. The right kidney measures 12.6 x 5.6 x 5.3 cm. Slightly complex cyst is present upper pole right kidney measuring 5.0 x 5.0 cm containing a slightly thickened septum. Small hypoechoic 1.3 cm cyst is present as well inferior pole. No hydronephrosis. The left kidney measures 11.1 x 6.5 x 6.1 cm. No hydronephrosis, focal mass or perinephric fluid. The urinary bladder is incompletely distended without gross abnormality seen. IMPRESSION: Slightly complicated upper pole right renal cyst with a slightly thickened internal septum. The cyst measures 5.0 cm. Followup surveillance imaging would be recommended of this lesion with MR imaging of the kidneys with contrast in 3-6 months. Otherwise, negative renal sonography. Conclusions/Impression: A/ NAKUL in the setting of sepsis/ hypotension. LLE Cellulitis/ Sepsis. HTN complicated hypotension. JOHNNIE? Hyponatremia. Hypocalcemia. Right slightly complex renal cyst 5cm. P/ Continue current POC and Medications. Continue IVF. Agree with Abx. Start Coreg 6.25mg twice daily; titrate as needed. Repeat renal imaging in 3-6 months. No NSAIDs. AM labs. Daily weight.
[2017-11-13] MEDS: CARVEDILOL 6.25 MG TAB PO SCH (20:32)
[2017-11-14] MEDS: NA CHLORIDE 0.9% 1,000 ML IV SCH (04:29)
[2017-11-14 06:09] LABS: Absolute Lymphocytes (CBC) 1.3 K/uL (0.7-4.9); Absolute Monocytes 0.6 K/uL (0.1-1.3); Absolute Neutrophil 1.9 K/uL (1.8-8.0); Basophils % 0.5 % (0-1.3); Eosinophils % 12.8 % (0-4.4); Hematocrit 37.9 % (39.6-49.0); Lymphocytes % 30.1 % (15.3-44.8); MCH 27.8 pg (27.0-35.0); MCV 81.9 fL (80-100); MPV 9.8 fL (7.6-11.3); RBC Red Blood Cell Count 4.63 M/uL (4.33-5.43)
[2017-11-14 06:16] LABS: BUN Blood Urea Nitrogen 10 mg/dL (7-18); Bicarbonate 31 mmol/L (21-32); Glucose Level 100 mg/dL (74-106); Magnesium 1.7 mg/dL (1.8-2.4); Potassium 4.2 mmol/L (3.5-5.1); Sodium Level 138 mmol/L (136-145)
[2017-11-14] MEDS ORDERED: MAGNESIUM SULFATE 1 gm IVPB 1 GM/100 ML BAG IV ONE (06:19)
--- NOTE | 2017-11-14 08:31 | P.DS ---
Admission Date: 11/11/17 Discharge Date: 11/14/17 Primary Care Provider: Terrie Ruiz NP Disposition: ROUTINE DISCHARGE Discharge Condition: GOOD Reason for Admission: Blurry vision, fever, presyncope Consultations: Nephrology-Dr. Lopez Procedures: CT head: No acute abnormality noted. Carotid Doppler: No significant stenosis or arthrosclerosis noted. Echocardiogram: Ejection fraction within normal range. LEFT VENTRICULAR WALL MOTION: NORMAL DOPPLER/COLOR FLOW: MILD TRICUSPID REGURGITATION. COMMENTS: MILD TRICUSPID REGURGITATION. NORMAL LEFT VENTRICULAR SIZE AND FUNCTION. NO EFFUSION. Renal ultrasound: COMPARISON: No comparisons FINDINGS: Both kidneys are normal in size, shape and echotexture. The right kidney measures 12.6 x 5.6 x 5.3 cm. Slightly complex cyst is present upper pole right kidney measuring 5.0 x 5.0 cm containing a slightly thickened septum. Small hypoechoic 1.3 cm cyst is present as well inferior pole. No hydronephrosis. The left kidney measures 11.1 x 6.5 x 6.1 cm. No hydronephrosis, focal mass or perinephric fluid. The urinary bladder is incompletely distended without gross abnormality seen. IMPRESSION: Slightly complicated upper pole right renal cyst with a slightly thickened internal septum. The cyst measures 5.0 cm. Followup surveillance imaging would be recommended of this lesion with MR imaging of the kidneys with contrast in 3-6 months. Otherwise, negative renal sonography. Medical problem list: Presyncope, hypotension likely multifactorial. Suspect sepsis related to LLE cellulitis complicated with recent use of hypertensive medication and dehydration Left lower extremity cellulitis Positive strep test likely colonization History of Hypertension with hypotension likely related to medication Acute renal failure secondary to hypertension and medication Right renal cyst, complicated-5 cm in size Blurry vision Hyponatremia likely from sepsis and hypotension Thrombocytopenia likely from sepsis Morbid obesity Patient likely with obstructive sleep apnea History of WPW status post ablation 2007 Brief History of Present Illness: 42-year-old male presented to emergency room with symptoms of fever, blurry vision, and presyncope. Patient reports that last week he had a lower extremity cellulitis. He was given antibiotics by his primary care physician. He was also started on blood pressure medication at that time for elevated blood pressure. Symptoms did not improve. He was to start more medication. This morning when he went to work he noted some blurry vision to the left eye. He felt lightheaded. At work his blood pressure was checked. It was low. Patient was sent to the ER for further evaluation. In the ER patient evaluated. Initial blood pressures were in the 60s systolic. Patient was febrile in the emergency room. Patient was given IV fluid bolus. CT head unremarkable. Chest x-ray unremarkable. White count 8.3. Hemoglobin 14.9. Platelet count 144. Pro calcitonin elevated at 6.83. Influenza test negative. He had a positive strep test. Patient was given Bicillin in the emergency room. After fluid hydration patient blood pressure improved. He was less orthostatic. He was admitted for further evaluation. When I saw the patient the ER, blood pressure was improved. Blood pressure 108/ 67. Patient denied any chest pain, shortness of breath, nausea or vomiting. He denied any cough, congestion or sore throat. Patient felt less tired. Patient reports that he has had poor oral intake. Patient with history of Asencio Parkinson White with ablation in 2007. Patient recently started blood pressure medication for elevated blood pressure. He does not recall the medication. Patient denies any sick individuals. Otherwise patient stable this time. Hospital Course: Patient presented with presyncope and hypotension likely multifactorial. Sepsis was suspected related to left lower extremity cellulitis. This was complicated with recent start of hypertensive medication and antibiotic/ antifungal therapy as an outpatient. Patient also had acute renal failure secondary to hypotension. During the course of his stay patient received IV fluids and started on antibiotic therapy. Blood cultures, urine culture remained negative. Chest x-ray unremarkable. CT head negative. Carotid Doppler and echocardiogram also unremarkable. Left lower extremity cellulitis improved with antibiotic therapy. Hypotension resolved. Renal function back to baseline. At discharge patient will continue with Levaquin 500 mg daily for 7 days. Bactroban ointment to the area to be applied. Skin care address in detail. Patient had Positive strep test likely colonization. patient did not have any cough, congestion or sore throat. Chest x-ray unremarkable. This can be followed as an outpatient. Patient had blurry vision likely from presyncope and hypotension. Carotid Doppler and echocardiogram unremarkable. CT head unremarkable. No further workup required. Patient has hypertension. This is newly diagnosed. Patient presented with hypotension now with hypertension. Blood pressure started. Patient will continue with carvedilol 6.25 mg 1 pill twice daily at discharge. Recommendation is to maintain blood pressures less 150/80. Further adjustment can be done by his PCP. Patient presented with acute renal failure secondary to hypotension and medication related. Renal ultrasound showed a complicated right 5 cm renal cyst. Nephrology was consulted. Renal function back to baseline. Recommendation is for the patient follow up with nephrology in 1-2 weeks to follow up this hospitalization. Recommendation for recheck ultrasound or MRI of the kidneys in 3-6 months to monitor resolution. Patient had electrolyte abnormalities. This resolved with hydration. Recommendation to recheck lab-BMP in 1 week to monitor his progress. Patient likely has underlying obstructive sleep apnea. Recommendation is the patient follow up with pulmonology as an outpatient to consider sleep study to further assess. Patient had thrombocytopenia likely related to sepsis. This improved. Recommendation to recheck lab-CBC in 1 week to monitor his progress. Patient with history of WPW status post ablation in 2007. Patient remained stable during his stay. Echocardiogram unremarkable. Patient may follow up with cardiology as an outpatient to further monitor. Patient may continue with aspirin 81 mg daily. Vital Signs/Physical Exam: Temp Pulse Resp BP Pulse Ox 97 F 81 16 136/78 95 11/14/17 04:00 11/14/17 04:00 11/14/17 04:00 11/14/17 04:00 11/14/17 04:00 General: Alert, In no apparent distress, Oriented x3, Cooperative HEENT: Atraumatic Neck: Supple Respiratory: Clear to auscultation bilaterally, Normal air movement Cardiovascular: Normal pulses, Regular rate/rhythm Gastrointestinal: Normal bowel sounds, Soft and benign, Non-distended, No tenderness, No masses, No rebound, No guarding Musculoskeletal: No erythema, No tenderness, No warmth Integumentary: No erythema, No warmth, No cyanosis, Other (Erythema to the left lower extremity almost resolved. No edema noted.) Neurological: Normal speech, Normal strength at 5/5 x4 extr, Normal tone, Normal affect Laboratory Data at Discharge: WBC 4.4 K/uL (4.3-10.9) 11/14/17 05:33 Hgb 12.9 g/dL (13.6-17.9) L 11/14/17 05:33 Hct 37.9 % (39.6-49.0) L 11/14/17 05:33 Plt Count 134 K/uL (152-406) L D 11/14/17 05:33 PT 15.0 SECONDS (9.5-12.5) H 11/11/17 13:20 INR 1.27 11/11/17 13:20 APTT 29.3 SECONDS (24.3-36.9) 11/11/17 13:20 Sodium 138 mmol/L (136-145) 11/14/17 05:33 Potassium 4.2 mmol/L (3.5-5.1) 11/14/17 05:33 BUN 10 mg/dL (7-18) 11/14/17 05:33 Creatinine 0.90 mg/dL (0.55-1.3) 11/14/17 05:33 Glucose 100 mg/dL (74-106) 11/14/17 05:33 Uric Acid 6.4 mg/dL (3.5-7.2) 11/13/17 05:14 Phosphorus 2.3 mg/dL (2.5-4.9) L 11/13/17 05:14 Magnesium 1.7 mg/dL (1.8-2.4) L 11/14/17 05:33 Home Medications: Fluticasone [Flonase 50MCG Nasal [place]*] 1 spray NS DAILY 11/12/17 Aspirin [Aspirin EC 81 MG] 81 mg PO DAILY #30 tablet. 11/14/17 Carvedilol [Coreg*] 6.25 mg PO BIDWM #60 tab 11/14/17 Mupirocin Oint [Bactroban 2% Ointment*] 1 appl TOP BID #1 tube 11/14/17 levoFLOXacin [Levaquin] 500 mg PO DAILY #7 tab 11/14/17 New Medications: Aspirin [Aspirin EC 81 MG] 81 mg PO DAILY #30 tablet. Carvedilol [Coreg*] 6.25 mg PO BIDWM #60 tab levoFLOXacin [Levaquin] 500 mg PO DAILY #7 tab Mupirocin Oint [Bactroban 2% Ointment*] 1 appl TOP BID #1 tube Patient Discharge Instructions: 1. Patient will need a follow up with his PCP in 1 week to follow up this hospitalization. 2. Patient presented with presyncope and hypotension likely multifactorial. Sepsis was suspected related to left lower extremity cellulitis. Patient also had acute renal failure secondary to hypotension. During the course of his stay patient received IV fluids and started on antibiotic therapy. Blood cultures, urine culture remained negative. Chest x-ray unremarkable. CT head negative. Carotid Doppler and echocardiogram also unremarkable. Left lower extremity cellulitis improved with antibiotic therapy. Hypotension resolved. Renal function back to baseline. At discharge patient will continue with Levaquin 500 mg daily for 7 days. Bactroban ointment to the area to be applied. Skin care address in detail. 3. Patient had Positive strep test likely colonization. patient did not have any cough, congestion or sore throat. Chest x-ray unremarkable. This can be followed as an outpatient. 4. Patient had blurry vision likely from presyncope and hypotension. Carotid Doppler and echocardiogram unremarkable. CT head unremarkable. No further workup required. 5. Patient has hypertension. This is newly diagnosed. Patient presented with hypotension now with hypertension. Blood pressure started. Patient will continue with carvedilol 6.25 mg 1 pill twice daily at discharge. Recommendation is to maintain blood pressures less 150/80. Further adjustment can be done by his PCP. 6. Patient presented with acute renal failure secondary to hypotension and medication related. Renal ultrasound showed a complicated right 5 cm renal cyst. Nephrology was consulted. Renal function back to baseline. Recommendation is for the patient follow up with nephrology in 1-2 weeks to follow up this hospitalization. Recommendation for recheck ultrasound or MRI of the kidneys in 3-6 months to monitor resolution. 7. Patient had electrolyte abnormalities. This resolved with hydration. Recommendation to recheck lab-BMP in 1 week to monitor his progress. 8. Patient likely has underlying obstructive sleep apnea. Recommendation is the patient follow up with pulmonology as an outpatient to consider sleep study to further assess. 9. Patient had thrombocytopenia likely related to sepsis. This improved. Recommendation to recheck lab-CBC in 1 week to monitor his progress. 10. Patient with history of WPW status post ablation in 2007. Patient remained stable during his stay. Echocardiogram unremarkable. Patient may follow up with cardiology as an outpatient to further monitor. Patient may continue with aspirin 81 mg daily. Diet: AHA Activity: Ad obdulia Time spent managing pt's care (in minutes): 55
[2017-11-14] MEDS: MUPIROCIN 2% OINT 22GM TUBE TOP SCH (09:00)
[2017-11-14] MEDS: ASPIRIN EC 81 MG TAB PO SCH (09:40)
[2017-11-14] MEDS: CARVEDILOL 6.25 MG TAB PO SCH (09:40)
[2017-11-14] MEDS: PANTOPRAZOLE 40MG TABLET PO SCH (09:40)
[2017-11-14] MEDS: ENOXAPARIN 30 MG/0.3 ML SQ SCH (09:41)
[2017-11-14] MEDS ORDERED: AMLODIPINE 2.5 MG TAB PO SCH (10:59)
== END 2017-11-14 10:08 | disposition home or self-care (01) | DRG 872 ==
LOC: ER 12:07 → ERHOLD 16:14 → 2ND 17:24
PROVIDERS: ADMIT Family Medicine; ATTEND Family Medicine
DX: A41.9 Sepsis, unspecified organism (principal); L03.116 Cellulitis of left lower limb; E87.1 Hypo-osmolality and hyponatremia; N17.9 Acute kidney failure, unspecified; I45.6 Pre-excitation syndrome; H53.8 Other visual disturbances; N28.1 Cyst of kidney, acquired; D69.6 Thrombocytopenia, unspecified; I10 Essential (primary) hypertension; G47.33 Obstructive sleep apnea (adult) (pediatric); E66.01 Morbid (severe) obesity due to excess calories
CPT/HCPCS: 36415; 70450; 71045; 71046; 76770; 80048; 81001; 82962; 83605; 83735; 84100; 84145; 84439; 84443; 84484; 84550; 85025; 85049; 85610; 85730; 86308; 87040; 87081; 87804; 93005; 93306; 93880; 96360; 96361; 96372; 99285; J0561; J1650; J3475; J7030

== ENCOUNTER 2018-05-22 12:13 | Emergency (ER) | payer OTHER ==
[2018-05-22 13:07] LABS: Absolute Lymphocytes (CBC) 0.2 K/uL (0.7-4.9); Absolute Monocytes 0.6 K/uL (0.1-1.3); Absolute Neutrophil 10.5 K/uL (1.8-8.0); Basophils % 0.2 % (0-1.3); Eosinophils % 0.6 % (0-4.4); Hematocrit 44.5 % (39.6-49.0); Lymphocytes % 1.6 % (15.3-44.8); Monocytes % 5.1 % (3.3-12.3); RBC Red Blood Cell Count 5.41 M/uL (4.33-5.43)
[2018-05-22] MEDS ORDERED: NA CHLORIDE 0.9% 1,000 ML ONE (13:13)
[2018-05-22] MEDS ORDERED: IBUPROFEN 400 MG TAB ONE (13:13)
[2018-05-22 13:36] LABS: Blood Morphology Comment NOT SEEN (NOT SEEN); Platelet Estimate ADEQ; Urine White Blood Cell Casts OK
--- NOTE | 2018-05-22 13:57 | RAD REPORT ---
EXAM DESCRIPTION: RAD - Chest Single View - 05/22/2018 1:39 pm CLINICAL HISTORY: COUGH Chest pain. COMPARISON: <Comparisons> FINDINGS: Portable technique limits examination quality. The lungs are grossly clear. The heart is upper limit of normal in size. No displaced fractures. IMPRESSION: No acute intrathoracic process suspected.
[2018-05-22 14:26] LABS: Urine Bacteria <20 /HPF (NONE SEEN); Urine Culture Reflex Order NOT NEEDED; Urine RBC <5 /HPF (NONE SEEN)
--- NOTE | 2018-05-22 14:34 | ER ---
Nurse's Notes [facility] Name: Jesus Batres Age: 42 yrs Sex: Male : 1975 Arrival Date: 05/22/2018 Time: 12:16 Bed 3 Private MD: Diagnosis: Dehydration;Fever of other and unknown origin Presentation: 05/22 12:30 Presenting complaint: Patient states: feels dehydrated, has migraine, feels confused, iw had abscess to rosario in October that has healed, has redness and irritation to left eyelid, was seen at Maria C Ruiz's office yesterday and was prescribed abx. Transition of care: patient was not received from another setting of care. Onset of symptoms. 12:30 Method Of Arrival: Ambulatory iw 12:35 Risk Assessment: Do you want to hurt yourself or someone else? Patient reports no iw desire to harm self or others. Initial Sepsis Screen: Does the patient meet any 2 criteria? No. Patient's initial sepsis screen is negative. Does the patient have a suspected source of infection? No. Patient's initial sepsis screen is negative. Care prior to arrival: None. 12:35 Acuity: ISH 3 iw Triage Assessment: 13:14 General: Appears in no apparent distress. uncomfortable, Behavior is calm, cooperative, hj appropriate for age. 13:14 Pain: Complains of pain in left eye and left leg. hj 13:14 EENT: Eyes. Neuro: Level of Consciousness is awake, alert, obeys commands, Oriented to hj person, place, time, situation, Appropriate for age. Cardiovascular: Capillary refill < 3 seconds Patient's skin is warm and dry. Respiratory: Airway is patent Respiratory effort is even, unlabored, Respiratory pattern is regular, symmetrical. GI: No signs and/or symptoms were reported involving the gastrointestinal system. : No signs and/or symptoms were reported regarding the genitourinary system. Derm: Reports cellulitis infection L rosario and L eye. Musculoskeletal: No signs and/or symptoms reported regarding the musculoskeletal system. Historical: - Allergies: 12:36 No Known Allergies; iw - PMHx: 12:36 Hypertension; iw - PSHx: 12:36 back; iw - Immunization history:: Adult Immunizations not up to date. - Social history:: Smoking status: Patient uses tobacco products, chewing tobacco. - Ebola Screening: : Patient negative for fever greater than or equal to 101.5 degrees Fahrenheit, and additional compatible Ebola Virus Disease symptoms Patient denies exposure to infectious person Patient denies travel to an Ebola-affected area in the 21 days before illness onset No symptoms or risks identified at this time. - Family history:: not pertinent. - Hospitalizations: : No recent hospitalization is reported. Screenin:39 Abuse screen: Denies threats or abuse. Denies injuries from another. Nutritional hj screening: No deficits noted. Tuberculosis screening: No symptoms or risk factors identified. Fall Risk None identified. Vital Signs: 12:35 BP 148 / 94; Pulse 105; Resp 20 S; Temp 99.6(O); Pulse Ox 96% on R/A; iw 13:31 BP 153 / 99; Pulse 93; Resp 18; Pulse Ox 99% on 1 lpm NC; hj 13:59 BP 104 / 85; Pulse 95; Resp 18; Pulse Ox 99% on 1 lpm NC; hj 14:39 BP 133 / 89; Pulse 89; Resp 18; Pulse Ox 97% on R/A; hj ED Course: 12:16 Patient arrived in ED. mr 12:24 Washington Kim, RN is Primary Nurse. hj 12:28 Kayden Stearns MD is Attending Physician. rn 12:35 Triage completed. iw 12:35 Arm band placed on. iw 12:45 Initial lab(s) drawn, by me, sent to lab. First set of blood cultures drawn by me, Flu hj and/or RSV swab sent to lab. Strep swab sent to lab. 12:59 Inserted saline lock: 20 gauge in right antecubital area, using aseptic technique. hj Blood collected. 13:00 Second set of blood cultures drawn by me. hj 13:00 Basic Metabolic Panel Sent. hj 13:00 CBC with Diff Sent. hj 13:00 Procalcitonin Sent. hj 13:00 Blood Culture Adult (2) Sent. hj 13:06 Basic Metabolic Panel Sent. hj 13:06 CBC with Diff Sent. hj 13:06 [place] Screen Profile Sent. hj 13:07 Flu Sent. hj 13:07 Procalcitonin Sent. hj 13:07 Blood Culture Adult (2) Sent. hj 13:07 Strep Sent. hj 13:14 Patient has correct armband on for positive identification. Placed in gown. Bed in low hj position. Call light in reach. Side rails up X2. Adult w/ patient. 13:37 XRAY Chest (1 view) In Process Unspecified. EDMS 14:13 Urine Microscopic Only Sent. hj 14:39 No provider procedures requiring assistance completed. IV discontinued, intact, hj bleeding controlled, No redness/swelling at site. Pressure dressing applied. Administered Medications: 12:40 Drug: NS 0.9% 1000 ml Route: IV; Rate: 1000 ml; Site: right antecubital; hj 13:24 Follow up: IV Status: Infusion continued hj 14:29 Follow up: IV Status: Completed infusion hj 12:40 Drug: Motrin 800 mg Route: PO; hj 13:24 Follow up: Response: No adverse reaction; Pain is decreased hj Outcome: 14:33 Discharge ordered by . rn 14:39 Discharged to home ambulatory, with family. hj 14:39 Condition: stable 14:39 Discharge instructions given to patient, family, Instructed on discharge instructions, follow up and referral plans. Demonstrated understanding of instructions, follow-up care. 14:41 Patient left the ED. hj Signatures: Dispatcher [employer] Joycelyn Resendez Irene, RN Kayden Wolf MD MD rn Joaquin, Henry, RN RN hj
--- NOTE | 2018-05-22 14:34 | EDPHYS ---
Physician Documentation [facility] Name: Jesus Batres Age: 42 yrs Sex: Male : 1975 Arrival Date: 05/22/2018 Time: 12:16 Bed 3 Private MD: ED Physician Kayden Stearns HPI: 05/22 13:24 This 42 yrs old Male presents to ER via Ambulatory with complaints of rn dehydration. 13:24 Reports few days of feeling generalized weakness, dehydration, headache, cough, seen by rn pcp and put on abx for swelling of left eye, reports very thirsty and peeing normally. No abd pain/vomiting/diarrhea. Reports rash on leg about the same as always. No focal neurological complaints. . 13:25 Severity of symptoms: At their worst the symptoms were moderate in the emergency rn department the symptoms have improved. The patient has experienced a previous episode. The patient has been recently seen by a physician:. Historical: - Allergies: 12:36 No Known Allergies; iw - PMHx: 12:36 Hypertension; iw - PSHx: 12:36 back; iw - Immunization history:: Adult Immunizations not up to date. - Social history:: Smoking status: Patient uses tobacco products, chewing tobacco. - Ebola Screening: : Patient negative for fever greater than or equal to 101.5 degrees Fahrenheit, and additional compatible Ebola Virus Disease symptoms Patient denies exposure to infectious person Patient denies travel to an Ebola-affected area in the 21 days before illness onset No symptoms or risks identified at this time. - Family history:: not pertinent. - Hospitalizations: : No recent hospitalization is reported. ROS: 13:25 Constitutional: + fever Eyes: + swelling of left eye, no vision changes ENT: Negative rn for injury, pain, and discharge, Neck: Negative for injury, pain, and swelling, Cardiovascular: Negative for chest pain, palpitations, and edema, Respiratory: + cough Abdomen/GI: Negative for abdominal pain, nausea, vomiting, diarrhea, and constipation, MS/Extremity: Negative for injury and deformity, Skin: Negative for injury, rash, and discoloration, Neuro: + headache and generalized weakness Exam: 13:25 Constitutional: This is a well developed, well nourished patient who is awake, alert rn Head/Face: Normocephalic, atraumatic. Eyes: Pupils equal round and reactive to light, extra-ocular motions intact.Mild conjunctival injection with swelling of left lower medial lid ENT: dry MM Neck: Trachea midline, no thyromegaly or masses palpated, and no cervical lymphadenopathy. Supple, full range of motion without nuchal rigidity, or vertebral point tenderness. No Meningismus. Cardiovascular: tachycardic, regular, no murmur Respiratory: Lungs have equal breath sounds bilaterally, clear to auscultation. No increased work of breathing, no retractions or nasal flaring. Abdomen/GI: soft, non-tender Skin: Warm, dry, erythematous rash anterior left pre-tibial area, no abscess/fluctuance. MS/ Extremity: Pulses equal, no cyanosis. Neurovascular intact. Full, normal range of motion. Equal circumference. Neuro: Awake and alert, GCS 15, oriented to person, place, time, and situation. Cranial nerves II-XII grossly intact. Motor strength 5/5 in all extremities. Sensory grossly intact. Cerebellar exam normal. Vital Signs: 12:35 BP 148 / 94; Pulse 105; Resp 20 S; Temp 99.6(O); Pulse Ox 96% on R/A; iw 13:31 BP 153 / 99; Pulse 93; Resp 18; Pulse Ox 99% on 1 lpm NC; hj 13:59 BP 104 / 85; Pulse 95; Resp 18; Pulse Ox 99% on 1 lpm NC; hj 14:39 BP 133 / 89; Pulse 89; Resp 18; Pulse Ox 97% on R/A; hj MDM: 12:28 Patient medically screened. rn 14:31 Differential Diagnosis sepsis, flu, strep, viral syndrome, pneumonia, UTI. Data rn reviewed: vital signs, nurses notes, lab test result(s), radiologic studies, plain films, and as a result, I will discharge patient. Counseling: I had a detailed discussion with the patient and/or guardian regarding: the historical points, exam findings, and any diagnostic results supporting the discharge/admit diagnosis, lab results, radiology results, the need for outpatient follow up, to return to the emergency department if symptoms worsen or persist or if there are any questions or concerns that arise at home. Response to treatment: the patient's symptoms have markedly improved after treatment, and as a result, I will discharge patient. ED course: Patient with grossly negative w/u here in ER, neg cxr, neg flu/strep/mono/UA. Offered LP given headache, patient declines. Also, no meningeal signs on exam. Improved with IV fluids. Offered him another L bolus, patient declines. Already on abx from PCP, patient wants to go home, will monitor himself and return if worsens. Throat and blood cultures sent and pending. . 05/22 12:40 Order name: CBC with Diff; Complete Time: 13:53 rn 05/22 12:40 Order name: Basic Metabolic Panel; Complete Time: 13:23 rn 05/22 12:40 Order name: Urine Microscopic Only; Complete Time: 14:30 rn 05/22 12:40 Order name: Flu; Complete Time: 13:53 rn 05/22 12:40 Order name: [place] Screen Profile; Complete Time: 13:23 rn 05/22 12:40 Order name: Blood Culture Adult (2) 05/22 12:40 Order name: Procalcitonin; Complete Time: 13:53 rn 05/22 12:40 Order name: XRAY Chest (1 view); Complete Time: 13:58 rn 05/22 12:40 Order name: Strep; Complete Time: 13:53 rn 05/22 13:11 Order name: CBC Smear Scan; Complete Time: 13:53 EDMS 05/22 13:25 Order name: Throat Culture EDNE 05/22 14:16 Order name: Urine Dipstick--Ancillary (enter results) 05/22 12:40 Order name: IV Start; Complete Time: 13:00 rn 05/22 12:40 Order name: Urine Dipstick-Ancillary (obtain specimen); Complete Time: 14:13 rn Administered Medications: 12:40 Drug: NS 0.9% 1000 ml Route: IV; Rate: 1000 ml; Site: right antecubital; hj 13:24 Follow up: IV Status: Infusion continued hj 14:29 Follow up: IV Status: Completed infusion hj 12:40 Drug: Motrin 800 mg Route: PO; hj 13:24 Follow up: Response: No adverse reaction; Pain is decreased hj Disposition: 05/22/18 14:33 Discharged to Home. Impression: Dehydration, Fever of other and unknown origin. - Condition is Stable. - Discharge Instructions: Dehydration, Adult, Fever, Adult. - Medication Reconciliation Form, Thank You Letter, Antibiotic Education, Prescription Opioid Use, Work release form form. - Follow up: Private Physician; When: 2 - 3 days; Reason: Recheck today's complaints, Re-evaluation by your physician. - Problem is new. - Symptoms have improved. Signatures: Dispatcher [employer] EDNE Melisa Braxton RN RN iw Nieto, Roman, MD MD rn Joaquin, Henry, RN RN hj Corrections: (The following items were deleted from the chart) 12:41 12:40 Influenza Screen (A \T\ B)+BA.LAB.BRZ ordered. EDNE EDNE 12:41 12:40 MONO SCREEN PROFILE+I.LAB.BRZ ordered. [facility] EDNE 12:41 12:40 Group A Streptococcus Rapid Sc+BA.LAB.BRZ ordered. [facility] EDNE 14:41 14:33 05/22/2018 14:33 Discharged to Home. Impression: Dehydration; Fever of other and hj unknown origin. Condition is Stable. Forms are Medication Reconciliation Form, Thank You Letter, Antibiotic Education, Prescription Opioid Use. Follow up: Private Physician; When: 2 - 3 days; Reason: Recheck today's complaints, Re-evaluation by your physician. Problem is new. Symptoms have improved. rn
[2018-05-22 14:39] LABS: Urine Blood TRACE (NEG); Urine Glucose NEGATIVE (NEG); Urine Protein 2+ (NEG); Urine Specific Gravity 1.015 (1.005-1.030)
== END 2018-05-22 14:41 | disposition home or self-care (01) ==
LOC: ER 12:13
DX: E86.0 Dehydration (principal); I10 Essential (primary) hypertension
CPT/HCPCS: 36415; 71045; 80048; 81003; 81015; 84145; 85025; 86308; 87040; 87070; 87081; 87804; 96360; 99284; J7030